=== PATIENT | female | born 1995 | race Two or more races ===

== ENCOUNTER 2025-01-29 06:59 | Emergency (ER) | payer MEDICAID, SELFPAY ==
[2025-01-29 07:12] VITALS: BP 135/70; PULSE 90; RESP 18; TEMP 37.2; O2SAT 100
--- NOTE | 2025-01-29 07:17 | EDNOTE_ITS ---
<Statement entered by Lindsey Ferguson MD - 01/29/25 09:40> As co-signing physician, I was present and available for consult prn. I concur with the plan and care as documented by the midlevel provider. ED Neck Injury Pain RME/HPI General Chief Complaint: Neck Pain/Injury Stated Complaint: NECK PAIN Time Seen by Provider: 01/29/25 07:05 Arrival date/time: 01/29/25 06:59 Limitations: no limitations RME / HPI RME / HPI Narrative: 29-year-old female here after sustaining fall 3 days ago. States she slipped and fell striking her left knee left shoulder. Next day had bruising on the l eft shoulder area but states now it is hurting as left lateral neck and radiates to the base of the skull. No head trauma. No loss of consciousness. No vomiting. Has tried Tylenol at home with no improvement. Moving all extremities. Related Data Previous Rx's ?Medication ?Instructions ?Recorded ofloxacin 0.3 % eye drops (Ocuflox) 2 drp ophthalmic ( eye) QID #10 mL 12/05/23 IBU 800 mg tablet (ibuprofen) 800 mg PO Q6H PRN pain # 30 tabs 01/29/25 IBU 800 mg tablet (ibuprofen) 800 mg PO Q6H PRN pain # 30 tabs 01/29/25 baclofen 10 mg tablet 10 mg PO QDAY #20 tabs 01/29 baclofen 10 mg tablet 10 mg PO QDAY PRN muscle spa sm #20 01/29/25 tabs Allergies Allergy/AdvReac Type Severity Reaction Status Date / Time No Known Allergies Allergy Verified 01/29/25 07:03 Review of Systems Review of Systems Systems Reviewed: All systems reviewed, normal except as documented Constitutional Constitutional: Denies fever(s) ENT Ears, Nose, Mouth, and Throat: Reports as per HPI Musculoskeletal Musculoskeletal: Reports as per HPI Neurologic Neurologic: Denies behavioral changes Psychiatric Psychiatric: Denies behavioral changes ED Exam General Limitations: Present no limitations General appearance: Present alert and in no apparent distress Head Head exam: Present atraumatic Eye Eye exam: Present normal appearance, PERRL and EOMI ENT ENT exam: Present normal exam, normal oropharynx and mucous membranes moist Neck Neck exam: Present normal inspection, full ROM, trachea midline and tenderness (no midline ttp, left lateral ttp ) Chest Chest inspection: Present normal inspection and symmetric chest wall rise Respiratory Respiratory exam: Present normal lung sounds bilaterally Cardiovascular Cardiovascular exam: Present regular rate, normal rhythm and normal heart sounds Abdominal Exam Abdominal exam: Present soft and normal bowel sounds Extremities Exam Extremities exam: Present full ROM, tenderness (left shoulder with ecchymosis but from ) and other (left knee ttp with small ecchymosis ) Back Exam Back exam: Present normal inspection and full ROM Neurological Exam Neurological exam: Present alert, oriented X3 and CN II-XII intact Psychiatric Psychiatric exam: Present normal affect and normal mood Skin Skin exam: Present warm, dry, intact and normal color Course Quality Measures none Orders Category Date Time Status HYDROcodone*/APAP 5/325 [[place] 5/325] Med 01/29/25 07:17 Discontinued 1 tab PO X1 ONE Ketorolac Inj [Toradol Inj] Med 01/29/25 07:17 Discontinued 30 mg IM X1 ONE Vital Signs Vital signs: Vital Signs Temperature 98.9 F 01/29/25 07:12 Pulse Rate 90 01/29/25 07:12 Respiratory Rate 18 01/29/25 07:12 Blood Pressure 135/70 H 01/29/25 07:12 Pulse Oximetry (%) 100 01/29/25 07:12 Oxygen Delivery Method Room Air 01/29/25 07:12 Neck Pain MDM Narrative MDM Narrative:: Mechanism of injury does not warrant further imaging at this time due to no LOC. Exam is fairly benign not requiring any workup at this time other than medications. Advise follow-up with PCP return to ER symptoms worsen Patient data External records reviewed:: [facility] previous records Clinical information provided by:: patient Social determinants that could affect healthcare access:: other (specify) (No PCP appointment on weekend) Patient has the following chronic illnesses:: None How is presenting disease/condition affected by chronic disease/condition?: no chronic disease Evaluation data The following diagnostics were reviewed and interpreted by me:: other (specify) (None) Lab and/or radiology exams considered but not ordered:: CT of head and neck was considered however mechanism of injury does not warrant further workup Interpretation Summary: None Medications / Prescriptions Medications or Prescriptions considered but not ordered:: Narcotics were considered for home but opted against it Medication administrations:: Medication Administration History Discontinued Medications Hydrocodone Bitart/Acetaminophen (Hydrocodone/Apap 5/325 Tablet) 1 tab PO X1 ONE Stop: 01/29/25 07:18 Last Admin: 01/29/25 07:27 Dose: 1 tab Documented By: TM Ketorolac Tromethamine (Ketorolac Inj 30 Mg/Ml Vial) 30 mg IM X1 ONE Stop: 01/29/25 07:18 Last Admin: 01/29/25 07:27 Dose: 30 mg Documented By: CELY See above Consultations Consultation(s) initiated? (list below): No Diagnosis Neck Differential Diagnosis: whiplash injury to neck, closed subluxation of cervical spine, fracture of cervical spine without lesion of spinal cord, cervical radiculopathy and strain of neck muscle Most likely diagnosis given after review of the tests above:: whiplash/neck spasm ground level fall left should contusion Admission Indicated Admission indicated?: not indicated Admission Request Was there a request for admission?: No Disposition Plan Disposition Plan: Discharge Discharge Attestation Discharge Attestation: The patient and all family members were given an opportunity to ask questions and understood the discharge instructions. Discharge instructions specifically effects, indications for sooner follow up or return to the emergency department, and the expected course of current diagnosis. Patient condition: Stable Discharge Plan Plan Patient Disposition: HOME (Self Care) Discharge Disposition comment: f.u with pcp in 2-3days Prescriptions/Referrals Prescriptions/Med Rec: New ibuprofen [IBU] 800 mg tablet 800 mg PO Q6H PRN (Reason: pain) Qty: 30 0RF baclofen 10 mg tablet 10 mg PO QDAY PRN (Reason: muscle spasm) Qty: 20 0RF ibuprofen [IBU] 800 mg tablet 800 mg PO Q6H PRN (Reason: pain) Qty: 30 0RF baclofen 10 mg tablet 10 mg PO QDAY Qty: 20 0RF No Action ofloxacin [Ocuflox] 0.3 % drops 2 drp ophthalmic (eye) QID Qty: 10 0RF Problem List Clinical Impression: Whiplash injury to neck, Ground-level fall, Contusion of left shoulder, Contusion of knee, left Patient/Caregiver Discharge Instructions Education Materials: Whiplash, Your Neck Muscles Print Language: Belize[place] Stand Alone Forms: Viky Award Info., Patient Portal Info Letter PA/[employer] RO[employer] ATTENDANT Supervising Physician PA/[employer]AD[employer] ROOM ATTENDANT Supervising Physician: Dr. Ferguson
[2025-01-29] MEDS: HYDROcodone/APAP 5/325 TABLET 1 TAB PO (07:27)
[2025-01-29] MEDS: KETOROLAC INJ 30 MG/ML VIAL IM (07:27)
== END 2025-01-29 07:58 | disposition home or self-care (01) ==
PROVIDERS: Emergency Provider Emergency Medicine
DX: S13.4XXA Sprain of ligaments of cervical spine, initial encounter (principal); S80.02XA Contusion of left knee, initial encounter; S40.012A Contusion of left shoulder, initial encounter; W01.198A Fall on same level from slipping, tripping and stumbling with subsequent striking against other object, initial encounter
CPT/HCPCS: 96372; 99283; J1885; A9270